=== PATIENT | female | born 1995 | race Caucasian/White ===

== ENCOUNTER 2018-06-23 14:19 | Observation (INO) | payer MEDICAID ==
[~2018-06-23] VITALS: Ht 147.3 cm; Wt 42.8 kg
--- NOTE | 2018-06-23 14:55 | NUR ---
PT TO ROOM AT THIS TIME. BELONGINGS REMOVED AND PLACED IN LOCKER. ROOM SECURED AT THIS TIME. SITTER AT DOORWAY.
[2018-06-23 15:28] LABS: BASOPHILS # (AUTO) 0.02 x10^3/uL (0-0.1); BASOPHILS % (AUTO) 0 % (0-1); EOSINOPHILS % (AUTO) 0 % (1-7); LYMPHOCYTES # (AUTO) 1.49 x10^3/uL (1-3.4); LYMPHOCYTES % (AUTO) 24 % (22-44); MD NO; MEAN CORPUSCULAR HEMOGLOBIN 31.2 pg (27.0-34.8); MEAN CORPUSCULAR HGB CONC 34.6 g/dL (32.4-35.8); MEAN CORPUSCULAR VOLUME 90.2 fL (80-100); MEAN PLATELET VOLUME 8.3 fL (7.4-10.4); MONOCYTES # (AUTO) 0.73 x10^3/uL (0.2-0.8); MONOCYTES % (AUTO) 12 % (2-9); NEUTROPHILS # (AUTO) 3.97 x10^3/uL (1.8-6.8); NEUTROPHILS % (AUTO) 64 % (42-75); PLATELET COUNT 224 x10^3/uL (130-400); RED BLOOD COUNT 4.68 x10^6/uL (3.82-5.3); RED CELL DISTRIBUTION WIDTH 13.7 % (9.6-15.2)
[2018-06-23 15:35] LABS: ALBUMIN 4.1 g/dL (3.4-5.0); ANION GAP 6 mmol/L (5-15); CALCIUM 9.1 mg/dL (8.5-10.1); CHLORIDE 108 mmol/L (98-107)
[2018-06-23 15:36] LABS: SALICYLATE LEVEL < 1.7 mg/dL (2.8-20.0)
[2018-06-23 15:43] LABS: ALANINE AMINOTRANSFERASE 16 U/L (12-78); ALKALINE PHOSPHATASE 60 U/L (45-117); BILIRUBIN,TOTAL 0.7 mg/dL (0.2-1.0); CREATININE 0.61 mg/dL (0.55-1.02); TOTAL PROTEIN 7.6 g/dL (6.4-8.2)
[2018-06-23 15:44] LABS: ACETAMINOPHEN < 2 mcg/mL (10-30)
--- NOTE | 2018-06-23 15:51 | NUR ---
URINE COLLECTED/SENT TO LAB. PT UPDATED ON POC, SITTER AT DOORWAY.
--- NOTE | 2018-06-23 16:00 | NUR ---
PER EX BOYFRIEND. RECENT BREAKUP, PT "GOING CRAZY" OVER PAST FEW WEEKS, CUTTING SELF AND THREATENING SUICIDE NUMEROUS TIME. HE STATES PT'S LAST SA WAS LAST WEEK, PT TOOK GUN AND PUT TO HEAD, ATTEMPTED TO SHOOT SELF BUT COULDN'T GET GUN TO WORK. THIS REPORTED TO [facility]P.
[2018-06-23 16:08] LABS: AMPHETAMINE SCREEN, URINE Negative (Negative); BARBITURATE SCREEN, URINE Negative (Negative); BENZODIAZEPINE SCREEN, URINE Negative (Negative); CANNABINOID SCREEN, URINE Positive (Negative); COCAINE SCREEN, URINE Negative (Negative); METHADONE SCREEN, URINE Negative (Negative); OPIATE SCREEN, URINE Negative (Negative)
--- NOTE | 2018-06-23 16:36 | NUR ---
SOC CALLED, TELEMONITOR IN PLACE.
--- NOTE | 2018-06-23 17:40 | NUR ---
REPORT TO SOC, EX BOYFRIEND'S NUMBER PROVIDED-BLAS [phone]. MONITOR IN ROOM.
--- NOTE | 2018-06-23 17:58 | NUR ---
PT UPDATED ON LEGAL HOLD/POC. MEAL TRAY ORDERED. SITTER AT DOORWAY.
--- NOTE | 2018-06-23 18:52 | NUR ---
SPOKE WITH EX BF VIA PHONE. [employer] COMMUNICATES SUPPORT FOR PT BUT STATES HE THINKS SHE WILL GET TOO UPSET SPEAKING WITH HIM ON PHONE. PT HAS HAD MULTIPLE REQUESTS TO CALL BF. PT GIVEN MSG OF SUPPORT FROM BF. MEAL TRAY PROVIDED. SITTER AT DOORWAY. AWAITING POSSIBLE 2N ADMIT.
[2018-06-23] MEDS ORDERED: DOCUSATE 100 MG CAPSULE PO PRN (20:00)
[2018-06-23] MEDS ORDERED: ACETAMINOPHEN 325 MG TABLET PO PRN (20:00)
--- NOTE | 2018-06-23 20:08 | NUR ---
REPORT TO JAXSON ARAIZA. PT TRANSPORTED TO FLOOR.
[2018-06-23 20:16] VITALS: BP 100/63
[2018-06-24 07:45] VITALS: BP 99/66
[2018-06-24] MEDS ORDERED: CITALOPRAM 10 MG TABLET PO SCH (10:30)
[2018-06-24] MEDS ORDERED: CITA10TA8 PO (13:35)
== END 2018-06-24 15:15 ==
LOC: ED 16:28 → EDIP 18:15 → 2N 20:18
PROVIDERS: ADMIT Internal Medicine; ATTEND Internal Medicine
DX: F41.0 Panic disorder [episodic paroxysmal anxiety] (principal); F32.9 Major depressive disorder, single episode, unspecified; F12.90 Cannabis use, unspecified, uncomplicated
CPT/HCPCS: 36415; 80053; 80307; 80329; 84703; 85025; 99284; G0378; Q0177; G0480